=== PATIENT | female | born 1960 | race Caucasian/White ===

== ENCOUNTER 2016-12-22 13:46 | Emergency (ER) | payer BC ==
[2016-12-22 13:59] VITALS: BP 145/74
--- NOTE | 2016-12-22 14:04 | UC ---
Dental HPI - HPI Summary HPI Summary: 56 year old female presents with left upper dental abscess/pain. - History of Current Complaint Stated Complaint: DENTAL PAIN Time Seen by Provider: 12/22/16 13:58 Hx Obtained From: Patient Onset/Duration: Sudden Onset Severity: Moderate Pain Scale Used: 0-10 Numeric - 6 Aggravating: Nothing Alleviating: Nothing - Allergies/Home Medications Allergies/Adverse Reactions: Allergies Allergy/AdvReac Type Severity Reaction Status Date / Time Meperidine [From Demerol HCl] Allergy Unknown Unknown Verified 12/22/16 13:59 Reaction Details Home Medications: Home Medications Losartan TAB* [Cozaar TAB*] 25 mg PO DAILY 12/22/16 [History Confirmed 12/22/16] glipiZIDE TAB* [Glucotrol TAB*] 2.5 mg PO DAILY 12/22/16 [History Confirmed 07/05] PMH/Surg Hx/FS Hx/Imm Hx Previously Healthy: Yes - Surgical History Surgical History: Yes Surgery Procedure, Year, and Place: CHOLECYSTECTOMY. ECTOPIC -- REMOVAL OF RIGHT TUBE AND OVARY. T&A. APPY - Social History Alcohol Use: Rare Substance Use Type: None Smoking Status (MU): Light Every Day Tobacco Smoker Type: Cigarettes Amount Used/How Often: ~1/4 PPD Length of Time of Smoking/Using Tobacco: 35 Years Have You Smoked in the Last Year: Yes - Immunization History Most Recent Influenza Vaccination: January 2014 Most Recent Tetanus Shot: within past 5 years Review of Systems Constitutional: Negative Skin: Negative Eyes: Negative ENT: Dental Pain Respiratory: Negative Cardiovascular: Negative Gastrointestinal: Negative Genitourinary: Negative Motor: Negative Neurovascular: Negative Musculoskeletal: Negative Neurological: Negative Psychological: Negative All Other Systems Reviewed And Are Negative: Yes Physical Exam Triage Information Reviewed: Yes Eye Exam: Normal ENT Exam: Normal Dental: Positive: Abscess @ Neck exam: Normal Neck: Positive: 1 Respiratory Exam: Normal Cardiovascular Exam: Normal Abdominal Exam: Normal Musculoskeletal Exam: Normal Neurological Exam: Normal Psychological Exam: Normal Skin Exam: Normal Dental Complaint Course/Dx - Differential Dx/Diagnosis Provider Diagnoses: left upper dental abscess Discharge - Discharge Plan Condition: Stable Disposition: HOME Prescriptions: Amoxicillin/Clavulanate TAB* [Augmentin TAB 875*] 875 mg PO BID #20 tab Chlorhexidine MW 0.12% 473ML* [Peridex Mouth Wash 0.12%*] 15 ml MT TID PC #1 bottle Naproxen [Naprosyn 500 mg] 500 mg PO BID #30 tab Patient Education Materials: Dental Abscess (ED) Referrals: Preston Marquez PA [Primary Care Provider] -
== END 2016-12-22 14:15 | disposition home or self-care (01) ==
LOC: UCCORT 13:46
DX: K04.7 Periapical abscess without sinus (principal); Z88.5 Allergy status to narcotic agent; F17.210 Nicotine dependence, cigarettes, uncomplicated
CPT/HCPCS: 99212; G0463

== ENCOUNTER 2018-03-31 11:07 | Day surgery (SDC) | payer BC ==
[~2018-03-31 11:07] MED LIST: Buffered Lidocaine 0.9% SYRIN* 5 ML/SYR SYRINGE INTRADERM ONE; DiMENhydriNATE IV* 50 MG/ML VIAL IV PUSH ONE; Famotidine IV* 10 MG/ML 2 ML (20 mg) IV ONE; Lactated Ringers 1000 ML Bag* 1,000 ML IV SCH
[2018-03-31] MEDS ORDERED: Famotidine IV* 10 MG/ML 2 ML (20 mg) ONE (11:45)
[2018-03-31] MEDS ORDERED: ceFAZolin 2 GM PREMIX in ORs 2 GM/50 ML BAG IVPB ONE (11:45)
[2018-03-31] MEDS ORDERED: DiMENhydriNATE IV* 50 MG/ML VIAL ONE (11:45)
[2018-03-31] MEDS ORDERED: Bupivacaine 0.25% SDV PF* 10 ML VIAL INJ ONE (13:54)
[2018-03-31] MEDS ORDERED: fentaNYL* 50 MCG/ML 2 ML VIAL (100 MCG VIAL) ONE ×2 (14:03→14:31)
[2018-03-31] MEDS ORDERED: Lidocaine 2% PF * 5 ML VIAL ONE (14:04)
[2018-03-31] MEDS ORDERED: Propofol* 10 MG/ML 20 ML BTL ONE (14:04)
[2018-03-31] MEDS ORDERED: Midazolam* 1 MG/ML 2 ML VIAL (2 MG) ONE (14:04)
[2018-03-31] MEDS ORDERED: PROCHLORPERAZINE INJ 5 MG/ML 2 ML VIAL IV PRN (14:09)
[2018-03-31] MEDS ORDERED: Naloxone* 0.4 MG/ML 1 ML VIAL IV PRN (14:09)
[2018-03-31] MEDS ORDERED: fentaNYL* 50 MCG/ML 2 ML VIAL (100 MCG VIAL) IV PRN (14:09)
[2018-03-31] MEDS ORDERED: HYDROcodone/ACETAMIN 5-325 MG* 1 TAB PO PRN (14:09)
[2018-03-31] MEDS ORDERED: oxyCODONE/Acetamin 5/325 MG* TAB PO PRN (14:09)
[2018-03-31] MEDS ORDERED: EPHEDrine (Pressors)* 50 MG/ML VIAL ONE (14:26)
[2018-03-31] MEDS ORDERED: Ketorolac INJ* 30 MG/ML 1 ML VIAL ONE (14:28)
[2018-03-31] MEDS ORDERED: Ondansetron INJ* 2 MG/ML VIAL ONE (15:22)
[2018-03-31] MEDS ORDERED: HYDROcodone/ACETAMIN 5-325 MG* 1 TAB ONE (16:11)
[2018-03-31 17:03] VITALS: BP 160/75
--- NOTE | 2018-03-31 22:00 | OP ---
OPERATIVE REPORT: DATE OF OPERATION: 03/31/18 DATE OF : 56 SURGEON: Rohan Crowe MD [employer] SUPERVISOR: MARYAM Chávez. An melter assistant was needed for positioning of the arm and retraction. ANESTHESIOLOGIST: Dr. Han. ANESTHESIA: General. PRE-OP DIAGNOSES: 1. Left thumb carpometacarpal degenerative joint disease. 2. Left trigger thumb. POST-OP DIAGNOSES: 1. Left thumb carpometacarpal degenerative joint disease. 2. Left trigger thumb. OPERATIVE PROCEDURE: 1. Left thumb carpometacarpal arthroplasty with trapeziectomy. 2. Left distally based split flexor carpi radialis tendon transfer for thumb suspension and tendon i nterposition. 3. Left trigger thumb release. FINDINGS: See above and below. ESTIMATED BLOOD LOSS: 2 mL. COMPLICATIONS: None. DESCRIPTION OF PROCEDURE: Rosario was seen in the preoperative holding area. The correct side, sit e, and procedure were identified. We came back to the operating room where the arm was prepped and d raped in the usual fashion and a time-out was performed. The arm was exsanguinated with the Esmarch and the tourniquet was inflated to 250 mmHg. I first made a 1 cm transverse incision over the A1 jacqui of the left thumb in the MCP joint flexion crease. Fu ll-thickness flaps were raised off the extensor tendon sheath. The tendon sheath was released with a 15-blade in line with the tendon. The release was completed distally and proximally with tenotomy s cissors. Once the A1 jacqui was completely released, we irrigated out the wound and skin was closed w ith 4-0 nylon suture. I then made a 2 to 3 cm longitudinal incision over the dorsal radial thumb over the CMC joint. The d issection was carried down longitudinally to preserve the traversing sensory nerves. The radial daysi ry was dissected free and mobilized out of the way. I raised subperiosteal and capsular flaps off th e trapezium to expose the trapezium. This was then excised in its entirety with the rongeur. The FC R tendon was preserved in the base of the wound. Once I had confirmed that the entirety of the trape zium was excised, I irrigated out the area and confirmed that no bony fragments remained. I then santana sed the periosteum off the dorsal radial base of the thumb metacarpal. Sequentially larger drill bit s were used to drill up to 3.2 mm and bone tunnel was created from the dorsal radial proximal metacar pal exiting out the volar ulnar articular surface near the base of the second metacarpal. I made a 1 cm transverse incision just proximal to the wrist flexion crease. The FCR sheath was rele ased and the tendon was delivered up into the wound. It was split longitudinally with a 15-blade and then and a 26-gauge wire was passed into the split of the tendon. We came proximal to that and made a second 1-cm incision transversely over the FCR tendon near the musculotendinous junction. The FCR tendon sheath was released under the skin in its entirety. I passed a Essence clamp from the proximal wound out to the distal wound where I retrieved to 26-gauge wire. The 26-gauge wire was then pulled into the proximal wound to release the tendon at the musculotendinous junction. The muscular remnant s were debrided off the proximal free end of the tendon and then the tendon was secured from fraying with a 3-0 Ethibond suture. Two 26-gauge wires were then used to pass the split end of the tendon do wn into the thumb base wound. The tendon split was completed all the way down to the base of the sec ond metacarpal. A 26-gauge wire was then used to pass the free end of the tendon through the bone tu nnel in the base of the metacarpal and then back around the intact limb of the FCR tendon. Appropria te tension was set as the tendon transfer was secured with three 3-0 Ethibond figure- of-eight suture s. The first sewed all 3 limbs of the tendon transfer together. The second 2 sewed intact limb to in tact limb. The remainder of the tendon was rolled up as a ball and secured with a 3-0 Ethibond sutur e and this was then placed as an interposition at the site of the trapeziectomy. Everything was irri gated out again. The capsule was closed with 3-0 Ethibond suture. The skin was closed with 4-0 nylo n and Marcaine was infiltrated all around the operative area. The wounds were dressed and a thumb sp ica splint with the IP joint free was applied. Tourniquet was deflated and the hand pinked up immedia tely and she was taken to the recovery room in stable condition. [id number]/[facility] #: [id number]
== END 2018-03-31 17:27 | disposition home or self-care (01) ==
LOC: OR 11:07
PROVIDERS: ATTEND Orthopaedic Surgery Hand Surgery
DX: M18.12 Unilateral primary osteoarthritis of first carpometacarpal joint, left hand (principal); M65.312 Trigger thumb, left thumb; E11.9 Type 2 diabetes mellitus without complications; E03.9 Hypothyroidism, unspecified; I10 Essential (primary) hypertension; Z72.0 Tobacco use
CPT/HCPCS: 88304; 88311; J0690; J1240; J1885; J2250; J2405; J2704; J3010; J3490